=== PATIENT | male | born 1970 | race Caucasian/White ===

== ENCOUNTER 2018-02-27 18:36 | Inpatient (IN) ==
[2018-02-27 19:13] LABS: Basophils % 0.2 % (0.1-2.0); Eosinophils # 0.1 K/mm3 (0.0-0.4); Eosinophils % 0.4 % (0.1-12.0); Hematocrit 44.6 % (42.0-52.0); Hemoglobin 15.2 g/dL (14.1-18.0); Lymphocytes # 1.9 K/mm3 (0.7-4.5); Lymphocytes % 9.8 K/mm3 (10-50); Mean Corpuscular Hemoglobin 30.3 pg (27.0-31.2); Mean Corpuscular Volume 89.1 fl (80-94); Mean Platelet Volume 8.3 fl (7.4-10.4); Monocytes # 1.1 K/mm3 (0.1-1.0); Monocytes % 5.6 % (1.7-9.3); Neutrophils # 16.4 K/mm3 (1.8-7.8); Neutrophils % 83.9 % (37.0-80.0); Platelet Count 220 K/mm3 (142-424); Red Blood Count 5.01 M/mm3 (4.60-6.20); Red Cell Distribution Width 12.6 % (11.5-17.5); White Blood Count 19.5 K/mm3 (4.8-10.8)
[2018-02-27 19:21] LABS: Lymphocytes % 8 % (10-50); Monocytes % 3 % (2-9); Neutrophils % 80 % (42-76); RBC Morphology Normal; Total Cells Counted 100
[2018-02-27 19:23] LABS: Albumin Level 3.9 gm/dL (3.4-5.0); Albumin/Globulin Ratio 1.1 (1.1-1.8); Bilirubin,Total 0.6 mg/dL (0.2-1.0); C-Reactive Protein 10.5 mg/L (0.0-0.9); Calcium 8.5 mg/dL (8.5-10.1); Globulin 3.5 gm/dl (1.3-3.2); Total Protein,Serum 7.4 gm/dL (6.4-8.2)
--- NOTE | 2018-02-27 21:35 | Emergency Department Note ---
ED Disposition Clinical Impression: Cellulitis of left elbow Disposition: Admitted as Observation Condition on Discharge: Fair (Discussed case with his admitting PCP (Dr. Duncan). SBAR given. Patient admitted to his care for farther management and monitoring. Patient remained stable during his ED care. Discussed case with Orthopedic surgeon [place] aide (Dr. Garcia). Agree with current management. Will see patient in AM.) - Critical Care Critical Care Time: No Attestation: On 02/27/18, the high probability of a clinically significant, sudden or life threatening deterioration of the following system(s) required my full and direct attention, intervention and personal management. The time I documented below is in addition to time spent performing reported procedures but includes the following listed in this critical care notation. Medical Decision Making - Balta Inquiry Pt receiving controlled substance: No Vital Signs: 02/27/18 18:40 02/27/18 20:45 02/27/18 21:15 Temperature 100.2 F H Temperature Source Oral Pulse Rate [Left Radial] 104 H 90 95 H Respiratory Rate 20 18 18 Blood Pressure [Right Arm] 154/87 134/70 129/67 Blood Pressure Mean [Right Arm] 109 91 87 Blood Pressure Source [Right Arm] Automatic Cuff Automatic Cuff Automatic Cuff Blood Pressure Position [Right Arm] Sitting Sitting 02 Sat by Pulse Oximetry 98 96 97 Oxygen Delivery Method Room Air Room Air - Lab Data Lab Results 02/27/18 18:47: WBC 19.5 H, RBC 5.01, Hgb 15.2, Hct 44.6, MCV 89.1, MCH 30.3, MCHC 34.0, RDW 12.6, Plt Count 220, MPV 8.3, Neut % (Auto) 83.9 H, Lymph % (Auto) 9.8 L, [place] % (Auto) 5.6, Eos % (Auto) 0.4, Baso % (Auto) 0.2, Neut # (Auto) 16.4 H, Lymph # (Auto) 1.9, [place] # (Auto) 1.1 H, Eos # (Auto) 0.1, Baso # (Auto) 0.0, Total Counted 100, Neutrophils % (Manual) 80 H, Band Neutrophils % 9.0 H, Lymphocytes % (Manual) 8 L, Monocytes % (Manual) 3, Platelet Estimate Normal, RBC Morphology Normal 02/27/18 18:47: Sodium 140, Potassium 4.0, Chloride 103, Carbon Dioxide 26, Anion Gap 15.0, BUN 11, Creatinine 0.99, Estimated Creat Clear 136, Estimated GFR 81, Est GFR ( Amer) 98, Glucose 105, Calcium 8.5, Total Bilirubin 0.6, AST 9 L, ALT 43, Alkaline Phosphatase 88, C-Reactive Protein 10.5 H, Total Protein 7.4, Albumin 3.9, Globulin 3.5 H, Albumin/Globulin Ratio 1.1 02/27/18 18:47: Lactate 1.0 02/27/18 18:47: ESR 10 Result diagrams: 02/27/18 18:47 02/27/18 18:47 Orders (Tests/Meds): ED MEDICATIONS Generic Name Dose Route Start Last Admin Trade Name Freq PRN Reason Stop Dose Admin Sodium Chloride 1,000 mls @ 125 mls/hr 02/27/18 21:30 Sod Chlor 0.9% 1000ml Bag IV 03/29/18 21:29 .Q8H TRENA Miscellaneous 1 each 02/27/18 21:30 Vancomycin Consult Request * 03/29/18 21:29 CONSULT PHARMACY TRENA Discontinued Medications Generic Name Dose Route Start Last Admin Trade Name Freq PRN Reason Stop Dose Admin Acetaminophen 650 mg 02/27/18 18:48 02/27/18 18:52 Acetaminophen 325mg Tab PO 02/27/18 18:49 650 mg ONCE ONE Administration Vancomycin HCl 2,000 mg/ 250 mls @ 125 mls/hr 02/27/18 19:18 02/27/18 19:38 Sodium Chloride IV 02/27/18 21:17 125 mls/hr ONCE ONE Administration Ketorolac Tromethamine 30 mg 02/27/18 19:27 02/27/18 19:38 Toradol 30mg/Ml Vial IV 02/27/18 19:28 30 mg ONCE ONE Administration ORDERS Category Date Time Status Blood Culture Stat Micro 02/27/18 18:47 Received Skin/Abscess/FB HPI - General Chief complaint: Extremity Injury, Upper Stated complaint: Fever, swollen arm Time Seen by Provider: 02/27/18 18:40 Mode of Arrival: Ambulatory Source of Information: Patient Limitations: No Limitations Description of Symptoms (Recalled from ER Triage Doc. 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 Denies any injury but does recall a spider bite about a week ago that his popped the "pimple". - History of Present Illness HPI narrative: Comes to the ED with complain of left elbow pain and swelling since yesterday. Patient reports subjective fever. Denies any recent injury or trauma. Denies any other associated complains at this time. Onset (ago): day(s) (1) Location: LUE (Left elbow) Severity: moderate Severity scale (1-10): 4 Quality: aching, constant Consistency: constant Relieving factors: none Exacerbating factors: none Context: none Associated symptoms: fever - Related Data Home Medications Medication Instructions Recorded Confirmed No Known Home Medications 02/27/18 02/27/18 Allergies Allergy/AdvReac Type Severity Reaction Status Date / Time naproxen [From Aleve] Allergy Dizziness Verified 02/27/18 18:45 [facility] History Medical History: Denies:: Diabetes Mellitus Type 1, Diabetes Mellitus Type 2 - Social History Smoking Status: Current every day smoker Alcohol Intake: current Alcohol Intake Frequency:: holidays/special occasions only - Psychiatric History Expresses thoughts of harming self/others: None Suicide Plan Description: No Plan ROS Obtained: Yes All systems reviewed & no additional complaints Physical Exam - General General appearance: alert, in no apparent distress - Head Head exam: atraumatic, normocephalic, normal inspection - Eye Eye exam: Present: normal appearance, PERRL, EOMI - ENT ENT exam: Present: normal exam, normal oropharynx, mucous membranes moist, TM's normal bilaterally, normal external ear exam - Neck Neck exam: Present: normal inspection, full ROM, trachea midline. Absent: meningismus, lymphadenopathy - Chest Chest inspection: Present: normal inspection, symmetric chest wall rise. Absen t: tenderness - Respiratory Respiratory exam: Present: normal lung sounds bilaterally. Absent: respiratory distress - Cardiovascular Cardiovascular exam: Present: regular rate, normal rhythm. Absent: JVD - Abdominal Exam Abdominal exam: Present: soft, normal bowel sounds. Absent: distention, tenderness, guarding - Extremities Exam Extremities exam: Present: normal inspection, full ROM, normal capillary refill, other (Warmth, erythema and mild swelling over let elbow.). Absent: calf tenderness - Back Exam Back exam: Present: normal inspection. Absent: tenderness - Neurological Exam Neurological exam: Present: alert, oriented X3 - Psychiatric Psychiatric exam: Present: normal affect, normal mood - Skin Skin exam: Present: warm, dry, intact, normal color - Lymphatic Lymphatic Findings: no adenopathy
--- NOTE | 2018-02-28 08:59 | Pharmacy Consult Notes ---
[facility] Pharmacy VTE Monitoring - Patient Demographics Admission date: 02/28/18 Report Date: 02/28/18 Time: 08:59 Allergies/Adverse Reactions: Patient Allergies naproxen [From Aleve] Allergy (Verified 02/27/18 18:45) Dizziness Height: 1.8 m Weight: 109.401 kg Patient Problems: Current Active Problems Cellulitis of left elbow (Acute) - VTE Risk Labs: VTE Related Lab Results Hgb 15.2 g/dL (14.1-18.0) 02/27/18 18:47 Hct 44.6 % (42.0-52.0) 02/27/18 18:47 Plt Count 220 K/mm3 (142-424) 02/27/18 18:47 BUN 11 mg/dL (7-18) 02/27/18 18:47 Creatinine 0.99 mg/dL (0.70-1.30) 02/27/18 18:47 Estimated Creat Clear 136 mL/min (0-300) 02/27/18 18:47 Was VTE Risk Assessment Performed: Yes VTE Score: 1 VTE Risk Level: Very Low Risk - Prophylaxis Types of VTE Prophylaxis: TEDS Knee High (NATHAN HOSE ORDERED) Location of Applied Device: Bilateral Lower Extremeties
--- NOTE | 2018-02-28 09:26 | Pharmacy Consult Notes ---
- Pharmacy Consult Date: 02/28/18 Time: 09:25 Referring provider: DR. LIZARRAGA Reason for Consult:: VANCOMYCIN DOSING Allergies and ADEs:: Allergies Allergy/AdvReac Type Severity Reaction Status Date / Time naproxen [From Aleve] Allergy Dizziness Verified 02/27/18 18:45 Home Medications:: Home Medications Medication Instructions Recorded Confirmed Type No Known Home Medications 02/27/18 02/27/18 History Height: 1.8 m Weight: 109.401 kg Laboratory Results:: Laboratory Results - last 24 hr 02/27/18 18:47: WBC 19.5 H, RBC 5.01, Hgb 15.2, Hct 44.6, MCV 89.1, MCH 30.3, MCHC 34.0, RDW 12.6, Plt Count 220, MPV 8.3, Neut % (Auto) 83.9 H, Lymph % (Auto) 9.8 L, [place] % (Auto) 5.6, Eos % (Auto) 0.4, Baso % (Auto) 0.2, Neut # (Auto) 16.4 H, Lymph # (Auto) 1.9, [place] # (Auto) 1.1 H, Eos # (Auto) 0.1, Baso # (Auto) 0.0, Total Counted 100, Neutrophils % (Manual) 80 H, Band Neutrophils % 9.0 H, Lymphocytes % (Manual) 8 L, Monocytes % (Manual) 3, Platelet Estimate Normal, RBC Morphology Normal 02/27/18 18:47: Sodium 140, Potassium 4.0, Chloride 103, Carbon Dioxide 26, Anion Gap 15.0, BUN 11, Creatinine 0.99, Estimated Creat Clear 136, Estimated GFR 81, Est GFR ( Amer) 98, Glucose 105, Calcium 8.5, Total Bilirubin 0.6, AST 9 L, ALT 43, Alkaline Phosphatase 88, C-Reactive Protein 10.5 H, Total Protein 7.4, Albumin 3.9, Globulin 3.5 H, Albumin/Globulin Ratio 1.1 02/27/18 18:47: Lactate 1.0 02/27/18 18:47: ESR 10 Medical History: Denies:: Diabetes Mellitus Type 1, Diabetes Mellitus Type 2 Assessment and Plan - Assessment and plan all Dx Assessment and Plan for all problems:: BASED ON PATIENT'S FACTORS, RECOMMEND CONTINUING WITH VANCOMYCIN 2000 MG Q12H AT THIS TIME. PHARMACY WILL FOLLOW DAILY AND ADJUST APPROPRIATE. MANJIT VANESSA, NATALIAD
--- NOTE | 2018-02-28 11:12 | History & Physical Report ---
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 He reports the ER physician aspirated his left elbow in the ER yesterday. [facility] History Medical History: Denies:: Diabetes Mellitus Type 1, Diabetes Mellitus Type 2, MRSA Other Surgeries: Yes: Other ([place] teeth removal) - *Social History Educational Level: Attended College Smoking Status: Current every day smoker Tobacco Type: cigarettes # Packs/Day (cigarettes): 1 #Yrs smoked (if former smoker): 10 Alcohol Intake: never Alcohol Intake Frequency:: holidays/special occasions only Occupational Status: employed Housing: house Household Members: spouse - Psychiatric History Expresses thoughts of harming self/others: None Suicide Plan Description: No Plan *Family Hx:: Diabetes Review of Systems - Constitutional Reports chills, Reports fever(s), Denies headache(s) - Eyes Denies blurry vision - ENT Denies change in voice - *Cardiovascular Denies chest pain - *Respiratory Denies cough - *Gastrointestinal Denies abdominal pain - *Genitourinary Denies difficulty urinating - *Neurologic Denies dizziness - Psychiatric Denies anxiety, Denies depression - Endocrine Denies cold intolerance, Denies heat intolerance - Hematologic/Lymphatic Denies easy bleeding, Denies easy bruising Meds Home Medications Medication Instructions Recorded Confirmed Type No Known Home Medications 02/27/18 02/27/18 History Allergies Allergy/AdvReac Type Severity Reaction Status Date / Time naproxen [From Aleve] Allergy Dizziness Verified 02/27/18 18:45 Exam Vital signs and Labs for Last 24 Hours: Temp Pulse Resp BP Pulse Ox 98.6 F 86 20 120/62 95 02/28/18 07:57 02/28/18 07:57 02/28/18 07:57 02/28/18 07:57 02/28/18 07:57 Laboratory Results - last 24 hr 02/27/18 18:47: WBC 19.5 H, RBC 5.01, Hgb 15.2, Hct 44.6, MCV 89.1, MCH 30.3, MCHC 34.0, RDW 12.6, Plt Count 220, MPV 8.3, Neut % (Auto) 83.9 H, Lymph % (Auto) 9.8 L, [place] % (Auto) 5.6, Eos % (Auto) 0.4, Baso % (Auto) 0.2, Neut # (Auto) 16.4 H, Lymph # (Auto) 1.9, [place] # (Auto) 1.1 H, Eos # (Auto) 0.1, Baso # (Auto) 0.0, Total Counted 100, Neutrophils % (Manual) 80 H, Band Neutrophils % 9.0 H, Lymphocytes % (Manual) 8 L, Monocytes % (Manual) 3, Platelet Estimate Normal, RBC Morphology Normal 02/27/18 18:47: Sodium 140, Potassium 4.0, Chloride 103, Carbon Dioxide 26, Anion Gap 15.0, BUN 11, Creatinine 0.99, Estimated Creat Clear 136, Estimated GFR 81, Est GFR ( Amer) 98, Glucose 105, Calcium 8.5, Total Bilirubin 0.6, AST 9 L, ALT 43, Alkaline Phosphatase 88, C-Reactive Protein 10.5 H, Total Protein 7.4, Albumin 3.9, Globulin 3.5 H, Albumin/Globulin Ratio 1.1 02/27/18 18:47: Lactate 1.0 02/27/18 18:47: ESR 10 I & O for Last 24 hours: Intake & Output 02/25/18 02/26/18 02/27/18 02/28/18 11:59 11:59 11:59 11:59 Intake Total 1106 / 1106 Balance 1106 / 1106 Weight 241 lb 3 oz - Constitutional no acute distress - *Routine HEENT Exam Head: Present: normocephalic Eye: Present: EOMI, PERRL ENT: Present: mucous membranes moist - *Routine Neck Exam Present: supple. Absent: lymphadenopathy - *Routine Respiratory Exam Present: CTA bilaterally - *Routine Cardiovascular Exam Present: RRR - *Routine Abdominal Exam Present: soft, normoactive bowel sounds. Absent: tenderness - *Routine Extremities Exam Present: edema (around the left elbow). Absent: cyanosis, clubbing - *Routine Skin Exam Present: erythema (around the left elbow, centered over the olecranon, some induration, no fluctuance), warm - *Routine Neurological Exam Present: alert, oriented X3 Assessment and Plan (1) Cellulitis of left elbow Current visit: Yes Status: Acute Category: Medical Code(s): L03.114 - Cellulitis of left upper limb (2) Leukocytosis Current visit: Yes Status: Acute Category: Medical Code(s): D72.829 - Elevated white blood cell count, unspecified (3) Fever and chills Current visit: Yes Status: Acute Category: Medical Code(s): R50.9 - Fever, unspecified - Assessment and plan all Dx Assessment and Plan for all problems:: Patient admitted for further evaluation and treatment of his left elbow symptoms. It is unclear if the aspiration yesterday was intraarticular or not. Patient has been placed on IV Vancomycin and Orthopedics was consulted by the ER physician.
--- NOTE | 2018-02-28 15:14 | Consult Report ---
*Admission Date: 02/28/18 *Chief complaint: Left elbow pain *History of present illness: This is a very pleasant right-hand dominant 48-year-old male with 2 day history of left elbow pain and swelling. 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 He denies any injuries, abrasions, or any inciting event that he can remember. He denies any numbness tingling or paresthesias of the left upper extremity. He denies any past injuries to this elbow. He relates that he noticed some increasing swelling and reported through the emergency room last night. Blood and inflammatory markers were elevated, pointing to an infectious process. He was started on IV antibiotics after an elbow aspiration was unsuccessful. He did complain of some mild fevers and chills last night, and was noted to have an elevated temperature. He has been on the antibiotics since last evening. Does relate that he feels somewhat better today in terms of fever and chills. Review of Systems - Review of Systems Otherwise 12 point review of systems is negative except for the above mentioned history of present illness - *Neurologic Denies dizziness, Denies headache(s) [facility] History I have reviewed the patient's past medical history: Yes Medical History: Denies:: Diabetes Mellitus Type 1, Diabetes Mellitus Type 2, MRSA Other Surgeries: Yes: Other ([place] teeth removal) - *Social History Educational Level: Attended College Smoking Status: Current every day smoker Tobacco Type: cigarettes # Packs/Day (cigarettes): 1 #Yrs smoked (if former smoker): 10 Alcohol Intake: never Alcohol Intake Frequency:: holidays/special occasions only Occupational Status: employed Housing: house Household Members: spouse - Psychiatric History Expresses thoughts of harming self/others: None Suicide Plan Description: No Plan *Family Hx:: Diabetes Meds Home Medications Medication Instructions Recorded Confirmed Type No Known Home Medications 02/27/18 02/27/18 History Allergies Allergy/AdvReac Type Severity Reaction Status Date / Time naproxen [From Aleve] Allergy Dizziness Verified 02/27/18 18:45 Exam Vital signs and Labs for Last 24 Hours: Temp Pulse Resp BP Pulse Ox 100.9 F H 86 20 120/62 95 02/28/18 13:32 02/28/18 07:57 02/28/18 07:57 02/28/18 07:57 02/28/18 07:57 Laboratory Results - last 24 hr 02/27/18 18:47: WBC 19.5 H, RBC 5.01, Hgb 15.2, Hct 44.6, MCV 89.1, MCH 30.3, MCHC 34.0, RDW 12.6, Plt Count 220, MPV 8.3, Neut % (Auto) 83.9 H, Lymph % (Auto) 9.8 L, [place] % (Auto) 5.6, Eos % (Auto) 0.4, Baso % (Auto) 0.2, Neut # (Auto) 16.4 H, Lymph # (Auto) 1.9, [place] # (Auto) 1.1 H, Eos # (Auto) 0.1, Baso # (Auto) 0.0, Total Counted 100, Neutrophils % (Manual) 80 H, Band Neutrophils % 9.0 H, Lymphocytes % (Manual) 8 L, Monocytes % (Manual) 3, Platelet Estimate Normal, RBC Morphology Normal 02/27/18 18:47: Sodium 140, Potassium 4.0, Chloride 103, Carbon Dioxide 26, Anion Gap 15.0, BUN 11, Creatinine 0.99, Estimated Creat Clear 136, Estimated GFR 81, Est GFR ( Amer) 98, Glucose 105, Calcium 8.5, Total Bilirubin 0.6, AST 9 L, ALT 43, Alkaline Phosphatase 88, C-Reactive Protein 10.5 H, Total Protein 7.4, Albumin 3.9, Globulin 3.5 H, Albumin/Globulin Ratio 1.1 02/27/18 18:47: Lactate 1.0 02/27/18 18:47: ESR 10 I & O for Last 24 hours: Intake & Output 02/25/18 02/26/18 02/27/18 02/28/18 23:59 23:59 23:59 23:59 Intake Total 1106 / 1106 Balance 1106 / 1106 Weight 241 lb 3 oz 241 lb 3 oz - Constitutional no acute distress - Detailed Upper Extremity Exam Comments: Left upper extremity/elbow: There is a moderate amount of erythema and diffuse swelling consistent with ce llulitis. No abscess or fluctuance can be appreciated on palpation Neurovascular intact distally Sensation intact to light touch throughout Compartments are soft and compressible Motor strength intact of the AIN/PIN/R/U/M Distal pulses are 2 out of 4 Full terminal extension of the elbow and flexion to 120 with no real discomfort. The flexion is limited by the moderate swelling Results - Labs Result Diagrams: 02/27/18 18:47 02/27/18 18:47 Labs: Abnormal lab results 02/27/18 02/27/18 Range/Units 18:47 18:47 WBC 19.5 H (4.8-10.8) K/mm3 Neut % (Auto) 83.9 H (37.0-80.0) % Lymph % (Auto) 9.8 L (10-50) K/mm3 Neut # (Auto) 16.4 H (1.8-7.8) K/mm3 [place] # (Auto) 1.1 H (0.1-1.0) K/mm3 Neutrophils % (Manual) 80 H (42-76) % Band Neutrophils % 9.0 H (0-8) Lymphocytes % (Manual) 8 L (10-50) % AST 9 L (15-37) U/L C-Reactive Protein 10.5 H (0.0-0.9) mg/L Globulin 3.5 H (1.3-3.2) gm/dl H & H 02/27/18 Range/Units 18:47 Hgb 15.2 (14.1-18.0) g/dL Hct 44.6 (42.0-52.0) % All other labs normal. Assessment and Plan (1) Cellulitis of left elbow Current visit: Yes Status: Acute Category: Medical Code(s): L03.114 - Cellulitis of left upper limb Assessment: Cellulitis left elbow Plan: Patient's clinical exam findings and diagnosis were discussed with him and his at today's visit. This appears to be cellulitic in nature, and no appreciable abscesses or fluctuance can be noted on exam. He is able to flex and extend his elbow without too much discomfort. I feel that if the infection was in the joint, he would have significant discomfort with range of motion. From an orthopedic standpoint, the plan will be to continue the IV antibiotics. He can eat, but we will make him n.p.o. at midnight again. If he is not improved or is getting worse tomorrow, I think an MRI is warranted. Otherwise, we will continue with conservative treatment with IV antibiotics per the primary team. Additionally, I will plan on ordering an x-ray of the left elbow. This plan was discussed with the patient and his , who verbalized agreement with the plan, and all questions were answered at today's consultation. Saúl Garcia DO, MPH Orthopedic Surgery (2) Leukocytosis Current visit: Yes Status: Acute Category: Medical Code(s): D72.829 - Elevated white blood cell count, unspecified (3) Fever and chills Current visit: Yes Status: Acute Category: Medical Code(s): R50.9 - Fever, unspecified
[2018-03-01 06:32] LABS: Basophils % 0.3 % (0.1-2.0); Eosinophils # 0.2 K/mm3 (0.0-0.4); Eosinophils % 1.4 % (0.1-12.0); Hematocrit 39.1 % (42.0-52.0); Hemoglobin 13.1 g/dL (14.1-18.0); Lymphocytes # 1.7 K/mm3 (0.7-4.5); Mean Corpuscular HGB Conc 33.5 g/dL (31.8-35.4); Mean Corpuscular Hemoglobin 30.3 pg (27.0-31.2); Mean Corpuscular Volume 90.5 fl (80-94); Mean Platelet Volume 8.1 fl (7.4-10.4); Monocytes # 1.2 K/mm3 (0.1-1.0); Monocytes % 7.1 % (1.7-9.3); Neutrophils # 13.4 K/mm3 (1.8-7.8); Neutrophils % 81.2 % (37.0-80.0); Platelet Count 207 K/mm3 (142-424); Red Blood Count 4.32 M/mm3 (4.60-6.20); Red Cell Distribution Width 12.6 % (11.5-17.5); White Blood Count 16.6 K/mm3 (4.8-10.8)
[2018-03-01 06:41] LABS: Calcium 8.2 mg/dL (8.5-10.1)
--- NOTE | 2018-03-01 08:20 | Progress Note ---
<Fany Leavitt - Last Filed: 03/01/18 08:24> Internal Medicine - PN: Subj *Date: 03/01/18 *Time: 07:45 Interval history: Patient states his arm is better. The swelling has decreased and has less redness. He has had a low-grade fever. He states his body aches all over. He is eating without difficulty. He is voiding QS and bowels have moved. He has been ambulating without difficulty Exam Vital signs and Labs for Last 24 Hours: Temp Pulse Resp BP Pulse Ox 99.3 F 82 18 152/71 92 L 03/01/18 07:43 03/01/18 07:43 03/01/18 07:43 03/01/18 04:00 03/01/18 07:43 Laboratory Results - last 24 hr 03/01/18 06:04: WBC 16.6 H, RBC 4.32 L, Hgb 13.1 L, Hct 39.1 L, MCV 90.5, MCH 30.3, MCHC 33.5, RDW 12.6, Plt Count 207, MPV 8.1, Neut % (Auto) 81.2 H, Lymph % (Auto) 10.0, [place] % (Auto) 7.1, Eos % (Auto) 1.4, Baso % (Auto) 0.3, Neut # (Auto) 13.4 H, Lymph # (Auto) 1.7, [place] # (Auto) 1.2 H, Eos # (Auto) 0.2, Baso # (Auto) 0.0 03/01/18 06:04: Sodium 141, Potassium 4.0, Chloride 109 H, Carbon Dioxide 25, Anion Gap 11.0, BUN 9, Creatinine 0.91, Estimated Creat Clear 155, Estimated GFR 89, Est GFR ( Amer) 108, Glucose 128 H, Calcium 8.2 L I & O for Last 24 hours: Intake & Output 02/26/18 02/27/18 02/28/18 03/01/18 11:59 11:59 11:59 11:59 Intake Total 1106 / 1106 2906 / 2906 Balance 1106 / 1106 2906 / 2906 Weight 241 lb 3 oz - Constitutional no acute distress Comments: Awakened for exam - *Routine Respiratory Exam Present: CTA bilaterally (Anteriorly and posteriorly) - *Routine Cardiovascular Exam Present: RRR - *Routine Abdominal Exam Present: soft, normoactive bowel sounds. Absent: tenderness - *Routine Extremities Exam Present: edema. Absent: calf tenderness Comments: Edema and erythema of the left forearm have decreased. He has a pouch fluid at the elbow. - *Routine Skin Exam Present: erythema Comments: Erythema and edema of left forearm have decreased. Pouch of fluid at the elbow. Nontender. - *Routine Neurological Exam Present: alert, oriented X3 Assessment and Plan (1) Cellulitis of left elbow Current visit: Yes Status: Acute Category: Medical Code(s): L03.114 - Cellulitis of left upper limb (2) Leukocytosis Current visit: Yes Status: Acute Category: Medical Code(s): D72.829 - Elevated white blood cell count, unspecified (3) Fever and chills Current visit: Yes Status: Acute Category: Medical Code(s): R50.9 - Fever, unspecified - Assessment and plan all Dx Assessment and Plan for all problems:: Continue with current treatment. Orthopedic note reviewed. <Kike Jimenez - Last Filed: 03/01/18 09:00> Exam Vital signs and Labs for Last 24 Hours: Temp Pulse Resp BP Pulse Ox 99.3 F 82 18 125/74 92 L 03/01/18 07:43 03/01/18 07:43 03/01/18 07:43 03/01/18 07:43 03/01/18 07:43 Laboratory Results - last 24 hr 03/01/18 06:04: WBC 16.6 H, RBC 4.32 L, Hgb 13.1 L, Hct 39.1 L, MCV 90.5, MCH 30.3, MCHC 33.5, RDW 12.6, Plt Count 207, MPV 8.1, Neut % (Auto) 81.2 H, Lymph % (Auto) 10.0, [place] % (Auto) 7.1, Eos % (Auto) 1.4, Baso % (Auto) 0.3, Neut # (Auto) 13.4 H, Lymph # (Auto) 1.7, [place] # (Auto) 1.2 H, Eos # (Auto) 0.2, Baso # (Auto) 0.0 03/01/18 06:04: Sodium 141, Potassium 4.0, Chloride 109 H, Carbon Dioxide 25, Anion Gap 11.0, BUN 9, Creatinine 0.91, Estimated Creat Clear 155, Estimated GFR 89, Est GFR ( Amer) 108, Glucose 128 H, Calcium 8.2 L I & O for Last 24 hours: Intake & Output 02/26/18 02/27/18 02/28/18 03/01/18 11:59 11:59 11:59 11:59 Intake Total 1106 / 1106 2906 / 2906 Balance 1106 / 1106 2906 / 2906 Weight 241 lb 3 oz Assessment and Plan (1) Cellulitis of left elbow Current visit: Yes Status: Acute Category: Medical Code(s): L03.114 - Cellulitis of left upper limb (2) Leukocytosis Current visit: Yes Status: Acute Category: Medical Code(s): D72.829 - Elevated white blood cell count, unspecified (3) Fever and chills Current visit: Yes Status: Acute Category: Medical Code(s): R50.9 - Fever, unspecified - Assessment and plan all Dx Assessment and Plan for all problems:: Saw patient, agree with above note.
--- NOTE | 2018-03-01 09:29 | Pharmacy Consult Notes ---
- Pharmacy Consult Date: 03/01/18 Time: 09:23 Referring provider: DR. LIZARRAGA Reason for Consult:: VANCOMYCIN LEVEL AND DOSE CHANGE Allergies and ADEs:: Allergies Allergy/AdvReac Type Severity Reaction Status Date / Time naproxen [From Aleve] Allergy Dizziness Verified 02/27/18 18:45 Home Medications:: Home Medications Medication Instructions Recorded Confirmed Type No Known Home Medications 02/27/18 02/27/18 History Height: 1.8 m Weight: 109.401 kg Laboratory Results:: Laboratory Results - last 24 hr 03/01/18 06:04: WBC 16.6 H, RBC 4.32 L, Hgb 13.1 L, Hct 39.1 L, MCV 90.5, MCH 30.3, MCHC 33.5, RDW 12.6, Plt Count 207, MPV 8.1, Neut % (Auto) 81.2 H, Lymph % (Auto) 10.0, [place] % (Auto) 7.1, Eos % (Auto) 1.4, Baso % (Auto) 0.3, Neut # (Auto) 13.4 H, Lymph # (Auto) 1.7, [place] # (Auto) 1.2 H, Eos # (Auto) 0.2, Baso # (Auto) 0.0 03/01/18 06:04: Sodium 141, Potassium 4.0, Chloride 109 H, Carbon Dioxide 25, Anion Gap 11.0, BUN 9, Creatinine 0.91, Estimated Creat Clear 155, Estimated GFR 89, Est GFR ( Amer) 108, Glucose 128 H, Calcium 8.2 L 03/01/18 08:38: Vancomycin Trough 6.2 L Medical History: Denies:: Diabetes Mellitus Type 1, Diabetes Mellitus Type 2, MRSA Assessment and Plan (1) Cellulitis of left elbow Current visit: Yes Status: Acute Category: Medical Code(s): L03.114 - Cellulitis of left upper limb (2) Leukocytosis Current visit: Yes Status: Acute Category: Medical Code(s): D72.829 - Elevated white blood cell count, unspecified (3) Fever and chills Current visit: Yes Status: Acute Category: Medical Code(s): R50.9 - Fever, unspecified - Assessment and plan all Dx Assessment and Plan for all problems:: BASED ON PATIENT'S VANCOMYCIN TROUGH LEVEL OF 6.2 MCG/ML, RECOMMEND CHANGING DOSING INTERVAL TO Q8H WITH VANCOMYCIN 2000 MG. PHARMACY WILL FOLLOW DAILY AND ADJUST APPROPRIATE. MANJIT VANESSA, PHARMD
[2018-03-01 09:40] LABS: Lymphocytes % 7 % (10-50); Monocytes % 11 % (2-9); Neutrophils % 80 % (42-76); RBC Morphology Normal; Total Cells Counted 100
--- NOTE | 2018-03-01 17:20 | Progress Note ---
Internal Medicine - PN: Subj *Date: 03/01/18 *Time: 17:16 Interval history: Patient is still awaiting orthopedist to round today. He has been NPO since midnight last night. Patient feels like his edema and redness of his left arm is slightly worse. He has had some subjective chills today. Exam Vital signs and Labs for Last 24 Hours: Temp Pulse Resp BP Pulse Ox 98.4 F 91 H 18 152/74 95 03/01/18 15:35 03/01/18 15:35 03/01/18 15:35 03/01/18 15:35 03/01/18 15:35 Laboratory Results - last 24 hr 03/01/18 06:04: WBC 16.6 H, RBC 4.32 L, Hgb 13.1 L, Hct 39.1 L, MCV 90.5, MCH 30.3, MCHC 33.5, RDW 12.6, Plt Count 207, MPV 8.1, Neut % (Auto) 81.2 H, Lymph % (Auto) 10.0, [place] % (Auto) 7.1, Eos % (Auto) 1.4, Baso % (Auto) 0.3, Neut # (Auto) 13.4 H, Lymph # (Auto) 1.7, [place] # (Auto) 1.2 H, Eos # (Auto) 0.2, Baso # (Auto) 0.0, Total Counted 100, Neutrophils % (Manual) 80 H, Lymphocytes % (Manual) 7 L, Atypical Lymphs % 2.0, Monocytes % (Manual) 11 H, Platelet Estimate Normal, RBC Morphology Normal 03/01/18 06:04: Sodium 141, Potassium 4.0, Chloride 109 H, Carbon Dioxide 25, Anion Gap 11.0, BUN 9, Creatinine 0.91, Estimated Creat Clear 155, Estimated GFR 89, Est GFR ( Amer) 108, Glucose 128 H, Calcium 8.2 L 03/01/18 08:38: Vancomycin Trough 6.2 L I & O for Last 24 hours: Intake & Output 02/27/18 02/28/18 03/01/18 03/02/18 11:59 11:59 11:59 11:59 Intake Total 1106 / 1106 2906 / 2906 Balance 1106 / 1106 2906 / 2906 Weight 241 lb 3 oz 241 lb 3 oz - *Routine Extremities Exam Present: edema (in left upper extremity is slightly worse) - *Routine Skin Exam Present: erythema (has extended out slightly past the marked area from yesterday) Assessment and Plan (1) Cellulitis of left elbow Current visit: Yes Status: Acute Category: Medical Code(s): L03.114 - Cellulitis of left upper limb (2) Leukocytosis Current visit: Yes Status: Acute Category: Medical Code(s): D72.829 - Elevated white blood cell count, unspecified (3) Fever and chills Current visit: Yes Status: Acute Category: Medical Code(s): R50.9 - Fever, unspecified - Assessment and plan all Dx Assessment and Plan for all problems:: Patient has not improved, will add Zosyn to Vancomycin now.
--- NOTE | 2018-03-01 18:46 | Progress Note ---
Subjective Date: 03/01/18 Time: 17:30 Principal diagnosis: Olecranon bursitis, left elbow; cellulitis, left elbow PN: Obj Ex Vital signs: Temp Pulse Resp BP Pulse Ox 99.0 F 91 H 18 152/74 95 03/01/18 17:30 03/01/18 15:35 03/01/18 15:35 03/01/18 15:35 03/01/18 15:35 Narrative: Laboratory Results - last 24 hr 03/01/18 06:04: WBC 16.6 H, RBC 4.32 L, Hgb 13.1 L, Hct 39.1 L, MCV 90.5, MCH 30.3, MCHC 33.5, RDW 12.6, Plt Count 207, MPV 8.1, Neut % (Auto) 81.2 H, Lymph % (Auto) 10.0, [place] % (Auto) 7.1, Eos % (Auto) 1.4, Baso % (Auto) 0.3, Neut # (Auto) 13.4 H, Lymph # (Auto) 1.7, [place] # (Auto) 1.2 H, Eos # (Auto) 0.2, Baso # (Auto) 0.0, Total Counted 100, Neutrophils % (Manual) 80 H, Lymphocytes % (Manual) 7 L, Atypical Lymphs % 2.0, Monocytes % (Manual) 11 H, Platelet Estimate Normal, RBC Morphology Normal 03/01/18 06:04: Sodium 141, Potassium 4.0, Chloride 109 H, Carbon Dioxide 25, Anion Gap 11.0, BUN 9, Creatinine 0.91, Estimated Creat Clear 155, Estimated GFR 89, Est GFR ( Amer) 108, Glucose 128 H, Calcium 8.2 L 03/01/18 08:38: Vancomycin Trough 6.2 L Progress Note: A&P (1) Cellulitis of left elbow Status: Acute Current Visit: Yes (2) Leukocytosis Status: Acute Current Visit: Yes (3) Fever and chills Status: Acute Current Visit: Yes (4) Olecranon bursitis of left elbow Status: Acute Current Visit: Yes Assessment and Plan for All Diagnoses:: I reviewed the clinical and x-ray findings and progress with the patient and his . Patient says he has made slight improvement symptomatically compared to yesterday. Also his white cell count has come down since admission but is still elevated. He is tender over the olecranon with soft tissue swelling and surrounding cellulitis. Nontender over the elbow joint anteriorly, medially and laterally; nontender over the radial head. He also has fairly good range of elbow flexion and extension with the range of motion 5 to 120. Following the discussion with the patient, I recommended continuation of conservative management including rest, activity modification, icing, continuation of IV antibiotics, NSAIDs and as needed pain medication. Also recommended repeat CBC, ESR and CRP tomorrow. Patient can eat and drink and I would reassess his progress tomorrow. There is no definite abscess formation and has had no surgical intervention is not indicated or required. I have discussed about the patient with Dr. Jimenez. Continue medical management as per Dr. Jimenez.
[2018-03-02 06:40] LABS: Basophils # 0.1 K/mm3 (0-0.2); Basophils % 0.4 % (0.1-2.0); Eosinophils # 0.3 K/mm3 (0.0-0.4); Eosinophils % 2.6 % (0.1-12.0); Hematocrit 40.8 % (42.0-52.0); Hemoglobin 13.7 g/dL (14.1-18.0); Lymphocytes # 2.2 K/mm3 (0.7-4.5); Lymphocytes % 18.3 K/mm3 (10-50); Mean Corpuscular HGB Conc 33.5 g/dL (31.8-35.4); Mean Corpuscular Hemoglobin 30.3 pg (27.0-31.2); Mean Corpuscular Volume 90.5 fl (80-94); Mean Platelet Volume 8.1 fl (7.4-10.4); Monocytes # 0.7 K/mm3 (0.1-1.0); Neutrophils # 8.8 K/mm3 (1.8-7.8); Neutrophils % 72.7 % (37.0-80.0); Platelet Count 247 K/mm3 (142-424); Red Cell Distribution Width 12.5 % (11.5-17.5); White Blood Count 12.1 K/mm3 (4.8-10.8)
[2018-03-02 06:42] LABS: Anion Gap 11.2 mEq/L (5-15); Calcium 8.4 mg/dL (8.5-10.1); Potassium 4.2 mmoL/L (3.5-5.1)
--- NOTE | 2018-03-02 08:06 | Progress Note ---
<Fany Leavitt - Last Filed: 03/02/18 08:03> Internal Medicine - PN: Subj *Date: 03/02/18 *Time: 07:35 Interval history: Patient is feeling much better. He states his fever broke during the night. He reports less swelling and redness of the left arm. When not n.p.o. he is eating well without problems. He denies chest pain and shortness of breath. He ambulates in the room without difficulty. Patient is anxious to go home. Exam Vital signs and Labs for Last 24 Hours: Temp Pulse Resp BP Pulse Ox 98.3 F 70 18 116/61 98 03/02/18 04:00 03/02/18 04:00 03/02/18 04:00 03/02/18 04:00 03/02/18 04:00 Laboratory Results - last 24 hr 03/01/18 06:04: Total Counted 100, Neutrophils % (Manual) 80 H, Lymphocytes % (Manual) 7 L, Atypical Lymphs % 2.0, Monocytes % (Manual) 11 H, Platelet Estimate Normal, RBC Morphology Normal 03/01/18 08:38: Vancomycin Trough 6.2 L 03/02/18 06:20: C-Reactive Protein 12.8 H 03/02/18 06:20: WBC 12.1 H D, RBC 4.50 L, Hgb 13.7 L, Hct 40.8 L, MCV 90.5, MCH 30.3, MCHC 33.5, RDW 12.5, Plt Count 247, MPV 8.1, Neut % (Auto) 72.7, Lymph % (Auto) 18.3, [place] % (Auto) 6.0, Eos % (Auto) 2.6, Baso % (Auto) 0.4, Neut # (Auto) 8.8 H, Lymph # (Auto) 2.2, [place] # (Auto) 0.7, Eos # (Auto) 0.3, Baso # (Auto) 0.1 03/02/18 06:20: Sodium 141, Potassium 4.2, Chloride 107, Carbon Dioxide 27, Anion Gap 11.2, BUN 9, Creatinine 0.95, Estimated Creat Clear 149, Estimated GFR 85, Est GFR ( Amer) 103, Glucose 118 H, Calcium 8.4 L I & O for Last 24 hours: Intake & Output 02/27/18 02/28/18 03/01/18 03/02/18 11:59 11:59 11:59 11:59 Intake Total 1106 / 1106 2906 / 2906 2947 / 2947 Balance 1106 / 1106 2906 / 2906 2947 / 2947 Weight 241 lb 3 oz 241 lb 3 oz Microbiology Reports for the Last 24 Hours: Microbiology 02/27/18 18:47 Blood Blood Culture - Preliminary NO GROWTH AFTER 48 HOURS 02/27/18 18:47 Blood Blood Culture - Preliminary NO GROWTH AFTER 48 HOURS - Constitutional no acute distress Comments: Sitting up in chair at bedside. Wanting to eat breakfast. - *Routine Respiratory Exam Present: CTA bilaterally (Anteriorly and posteriorly) - *Routine Cardiovascular Exam Present: RRR - *Routine Abdominal Exam Present: soft, normoactive bowel sounds. Absent: tenderness, distended - *Routine Extremities Exam Comments: No leg edema. Left arm with a decreased amount of edema and erythema. Some soft tissue swelling at elbow. Left hand has some edema. Tender to palpation at the elbow - *Routine Neurological Exam Present: alert, oriented X3 Assessment and Plan (1) Cellulitis of left elbow Current visit: Yes Status: Acute Category: Medical Code(s): L03.114 - Cellulitis of left upper limb (2) Leukocytosis Current visit: Yes Status: Acute Category: Medical Code(s): D72.829 - Elevated white blood cell count, unspecified (3) Fever and chills Current visit: Yes Status: Acute Category: Medical Code(s): R50.9 - Fever, unspecified (4) Olecranon bursitis of left elbow Current visit: Yes Status: Acute Category: Medical Code(s): M70.22 - Olecranon bursitis, left elbow - Assessment and plan all Dx Assessment and Plan for all problems:: Blood cultures remain without growth. WBCs have decreased but are still slightly elevated at 12.1. Will continue IV antibiotics for now. Will saline lock IV. <Kike Jimenez - Last Filed: 03/02/18 09:14> Exam Vital signs and Labs for Last 24 Hours: Temp Pulse Resp BP Pulse Ox 97.8 F 75 76 H 131/86 97 03/02/18 08:00 03/02/18 08:00 03/02/18 08:00 03/02/18 08:00 03/02/18 08:00 Laboratory Results - last 24 hr 03/01/18 06:04: Total Counted 100, Neutrophils % (Manual) 80 H, Lymphocytes % (Manual) 7 L, Atypical Lymphs % 2.0, Monocytes % (Manual) 11 H, Platelet Estimate Normal, RBC Morphology Normal 03/01/18 08:38: Vancomycin Trough 6.2 L 03/02/18 06:20: C-Reactive Protein 12.8 H 03/02/18 06:20: WBC 12.1 H D, RBC 4.50 L, Hgb 13.7 L, Hct 40.8 L, MCV 90.5, MCH 30.3, MCHC 33.5, RDW 12.5, Plt Count 247, MPV 8.1, Neut % (Auto) 72.7, Lymph % (Auto) 18.3, [place] % (Auto) 6.0, Eos % (Auto) 2.6, Baso % (Auto) 0.4, Neut # (Auto) 8.8 H, Lymph # (Auto) 2.2, [place] # (Auto) 0.7, Eos # (Auto) 0.3, Baso # (Auto) 0.1 03/02/18 06:20: Sodium 141, Potassium 4.2, Chloride 107, Carbon Dioxide 27, Anion Gap 11.2, BUN 9, Creatinine 0.95, Estimated Creat Clear 149, Estimated GFR 85, Est GFR ( Amer) 103, Glucose 118 H, Calcium 8.4 L I & O for Last 24 hours: Intake & Output 02/27/18 02/28/18 03/01/18 03/02/18 11:59 11:59 11:59 11:59 Intake Total 1106 / 1106 2906 / 2906 2947 / 2947 Balance 1106 / 1106 2906 / 2906 2947 / 2947 Weight 241 lb 3 oz 241 lb 3 oz Microbiology Reports for the Last 24 Hours: Microbiology 02/27/18 18:47 Blood Blood Culture - Preliminary NO GROWTH AFTER 48 HOURS 02/27/18 18:47 Blood Blood Culture - Preliminary NO GROWTH AFTER 48 HOURS Assessment and Plan (1) Cellulitis of left elbow Current visit: Yes Status: Acute Category: Medical Code(s): L03.114 - Cellulitis of left upper limb (2) Leukocytosis Current visit: Yes Status: Acute Category: Medical Code(s): D72.829 - Elevated white blood cell count, unspecified (3) Fever and chills Current visit: Yes Status: Acute Category: Medical Code(s): R50.9 - Fever, unspecified (4) Olecranon bursitis of left elbow Current visit: Yes Status: Acute Category: Medical Code(s): M70.22 - Olecranon bursitis, left elbow - Assessment and plan all Dx Assessment and Plan for all problems:: Saw patient, agree with above note. Patient is much better today.
--- NOTE | 2018-03-02 09:37 | Pharmacy Consult Notes ---
- Pharmacy Consult Date: 03/02/18 Time: 09:34 Referring provider: DR. LIZARRAGA Reason for Consult:: VANCOMYCIN TROUGH LEVEL Allergies and ADEs:: Allergies Allergy/AdvReac Type Severity Reaction Status Date / Time naproxen [From Aleve] Allergy Dizziness Verified 02/27/18 18:45 Home Medications:: Home Medications Medication Instructions Recorded Confirmed Type No Known Home Medications 02/27/18 02/27/18 History Height: 1.8 m Weight: 109.401 kg Laboratory Results:: Laboratory Results - last 24 hr 03/01/18 06:04: Total Counted 100, Neutrophils % (Manual) 80 H, Lymphocytes % (Manual) 7 L, Atypical Lymphs % 2.0, Monocytes % (Manual) 11 H, Platelet Estimate Normal, RBC Morphology Normal 03/02/18 06:20: C-Reactive Protein 12.8 H 03/02/18 06:20: WBC 12.1 H D, RBC 4.50 L, Hgb 13.7 L, Hct 40.8 L, MCV 90.5, MCH 30.3, MCHC 33.5, RDW 12.5, Plt Count 247, MPV 8.1, Neut % (Auto) 72.7, Lymph % (Auto) 18.3, [place] % (Auto) 6.0, Eos % (Auto) 2.6, Baso % (Auto) 0.4, Neut # (Auto) 8.8 H, Lymph # (Auto) 2.2, [place] # (Auto) 0.7, Eos # (Auto) 0.3, Baso # (Auto) 0.1 03/02/18 06:20: Sodium 141, Potassium 4.2, Chloride 107, Carbon Dioxide 27, Anion Gap 11.2, BUN 9, Creatinine 0.95, Estimated Creat Clear 149, Estimated GFR 85, Est GFR ( Amer) 103, Glucose 118 H, Calcium 8.4 L 03/02/18 08:25: Vancomycin Trough 15.6 Medical History: Denies:: Diabetes Mellitus Type 1, Diabetes Mellitus Type 2, MRSA Assessment and Plan (1) Cellulitis of left elbow Current visit: Yes Status: Acute Category: Medical Code(s): L03.114 - Cellulitis of left upper limb (2) Leukocytosis Current visit: Yes Status: Acute Category: Medical Code(s): D72.829 - Elevated white blood cell count, unspecified (3) Fever and chills Current visit: Yes Status: Acute Category: Medical Code(s): R50.9 - Fever, unspecified (4) Olecranon bursitis of left elbow Current visit: Yes Status: Acute Category: Medical Code(s): M70.22 - Olecranon bursitis, left elbow - Assessment and plan all Dx Assessment and Plan for all problems:: BASED ON VANCOMYCIN TROUGH LEVEL AND PATIENT FACTORS, RECOMMEND CONTINUING V ANCOMYCIN 2 GM IV Q8H. PATIENT'S FEVER IS GONE AND CELLULITIS IS IMPROVING. PHARMACY WILL CONTINUE TO MONITOR DAILY AND ADJUST APPROPRIATE.
--- NOTE | 2018-03-02 13:24 | Progress Note ---
Subjective Date: 03/02/18 Time: 15:00 Principal diagnosis: Olecranon bursitis, left elbow; cellulitis, left elbow Interval history: Patient says he is doing a lot better today. He reports less pain, swelling and redness around his left elbow. He had low-grade fever last night with a T-max of 99.7. Patient is sitting out in the chair. Says is doing well and reports no problems. No history of any nausea or vomiting. Patient says he is eating and drinking well. No history of any distal tingling or numbness. PN: Obj Ex Vital signs: Temp Pulse Resp BP Pulse Ox 97.8 F 75 18 120/76 97 03/02/18 11:45 03/02/18 11:45 03/02/18 11:45 03/02/18 11:45 03/02/18 11:45 Narrative: Laboratory Results - last 24 hr 03/02/18 06:20: ESR 41 H 03/02/18 06:20: C-Reactive Protein 12.8 H 03/02/18 06:20: WBC 12.1 H D, RBC 4.50 L, Hgb 13.7 L, Hct 40.8 L, MCV 90.5, MCH 30.3, MCHC 33.5, RDW 12.5, Plt Count 247, MPV 8.1, Neut % (Auto) 72.7, Lymph % (Auto) 18.3, [place] % (Auto) 6.0, Eos % (Auto) 2.6, Baso % (Auto) 0.4, Neut # (Auto) 8.8 H, Lymph # (Auto) 2.2, [place] # (Auto) 0.7, Eos # (Auto) 0.3, Baso # (Auto) 0.1 03/02/18 06:20: Sodium 141, Potassium 4.2, Chloride 107, Carbon Dioxide 27, Anion Gap 11.2, BUN 9, Creatinine 0.95, Estimated Creat Clear 149, Estimated GFR 85, Est GFR ( Amer) 103, Glucose 118 H, Calcium 8.4 L 03/02/18 08:25: Vancomycin Trough 15.6 Microbiology 02/27/18 18:47 Blood Blood Culture - Preliminary NO GROWTH AFTER 48 HOURS 02/27/18 18:47 Blood Blood Culture - Preliminary NO GROWTH AFTER 48 HOURS Exam General appearance: alert, active, awake, no acute distress Cardiovascular: regular rate & rhythm, normal peripheral pulses Respiratory: no respiratory distress noted, speaks in full sentences Neuro: alert, awake, oriented x 3 Psych: normal mood and affect On examination of the left upper extremity, the erythema and swelling have significantly improved compared to yesterday. There is still some puffy swelling and tenderness over the olecranon bursa. The skin is starting to wrinkle over the rest of the arm. He has almost full range of elbow and forearm movements. No tenderness over the elbow joint anteriorly and nontender over the radial head. Distal pulses are 2+. Distal sensation is intact to light touch throughout. No motor deficits noted distally. Progress Note: A&P (1) Cellulitis of left elbow Status: Acute Current Visit: Yes (2) Leukocytosis Status: Acute Current Visit: Yes (3) Fever and chills Status: Acute Current Visit: Yes (4) Olecranon bursitis of left elbow Status: Acute Current Visit: Yes Assessment and Plan for All Diagnoses:: I reviewed the clinical findings and progress with the patient his . His elbow/arm have improved significantly since yesterday and is happy with his progress. The olecranon bursa is still significantly inflamed but no definitive evidence of any abscess formation. As he is improving with the current management, the white cell count is trending down and had a negative aspiration on admission, I would recommend continuation of the IV antibiotics. I have told him that if he develops an abscess or the infection does not clear completely with antibiotics he may need surgical intervention but for now we will wait and watch. He is happy with this plan. Medical management as per Dr. Jimenez.
--- NOTE | 2018-03-03 07:58 | Progress Note ---
<Patsy Medina - Last Filed: 03/03/18 07:56> Internal Medicine - PN: Subj *Date: 03/03/18 *Time: 07:56 Interval history: Patient is feeling better this am. Pain and swelling along with erythema have improved. Still some tenderness and swelling right on the olecranon bursa. Pt was able to rest. Eating well. Denies any other pain. Exam Vital signs and Labs for Last 24 Hours: Temp Pulse Resp BP Pulse Ox 98.2 F 73 16 131/88 95 03/03/18 04:00 03/03/18 04:00 03/03/18 04:00 03/03/18 04:00 03/03/18 04:00 Laboratory Results - last 24 hr 03/02/18 06:20: ESR 41 H 03/02/18 08:25: Vancomycin Trough 15.6 I & O for Last 24 hours: Intake & Output 02/28/18 03/01/18 03/02/18 03/03/18 11:59 11:59 11:59 11:59 Intake Total 1106 / 1106 2906 / 2906 2947 / 2947 1060 / 1060 Balance 1106 / 1106 2906 / 2906 2947 / 2947 1060 / 1060 Weight 241 lb 3 oz 241 lb 3 oz 241 lb 3 oz - Constitutional no acute distress - *Routine Respiratory Exam Present: CTA bilaterally - *Routine Cardiovascular Exam Present: RRR - *Routine Abdominal Exam Present: soft, normoactive bowel sounds. Absent: tenderness - *Routine Extremities Exam Absent: cyanosis, clubbing, edema - *Routine Skin Exam Comments: Left elbow still with some erythema, edema, and ttp along the olecranon bursa, the erythema of the forearm and upper arm have improved, better ROM of the elbow Assessment and Plan (1) Cellulitis of left elbow Current visit: Yes Status: Acute Category: Medical Code(s): L03.114 - Cellulitis of left upper limb (2) Leukocytosis Current visit: Yes Status: Acute Category: Medical Code(s): D72.829 - Elevated white blood cell count, unspecified (3) Fever and chills Current visit: Yes Status: Acute Category: Medical Code(s): R50.9 - Fever, unspecified (4) Olecranon bursitis of left elbow Current visit: Yes Status: Acute Category: Medical Code(s): M70.22 - Olecranon bursitis, left elbow - Assessment and plan all Dx Assessment and Plan for all problems:: Dr. Villarreal's note reviewed. Will continue IV abx. WBC is improving. <Kike Jimenez - Last Filed: 03/03/18 08:23> Exam Vital signs and Labs for Last 24 Hours: Temp Pulse Resp BP Pulse Ox 97.9 F 76 18 142/91 95 03/03/18 08:00 03/03/18 08:00 03/03/18 08:00 03/03/18 08:00 03/03/18 08:00 Laboratory Results - last 24 hr 03/02/18 06:20: ESR 41 H 03/02/18 08:25: Vancomycin Trough 15.6 I & O for Last 24 hours: Intake & Output 02/28/18 03/01/18 03/02/18 03/03/18 11:59 11:59 11:59 11:59 Intake Total 1106 / 1106 2906 / 2906 2947 / 2947 1540 / 1540 Balance 1106 / 1106 2906 / 2906 2947 / 2947 1540 / 1540 Weight 241 lb 3 oz 241 lb 3 oz 241 lb 3 oz Assessment and Plan (1) Cellulitis of left elbow Current visit: Yes Status: Acute Category: Medical Code(s): L03.114 - Cellulitis of left upper limb (2) Leukocytosis Current visit: Yes Status: Acute Category: Medical Code(s): D72.829 - Elevated white blood cell count, unspecified (3) Fever and chills Current visit: Yes Status: Acute Category: Medical Code(s): R50.9 - Fever, unspecified (4) Olecranon bursitis of left elbow Current visit: Yes Status: Acute Category: Medical Code(s): M70.22 - Olecranon bursitis, left elbow - Assessment and plan all Dx Assessment and Plan for all problems:: Saw patient, agree with above note, will switch to oral antibiotics today with p ossible discharge later today.
[2018-03-03 12:00] LABS: Basophils # 0.1 K/mm3 (0-0.2); Basophils % 0.5 % (0.1-2.0); Eosinophils # 0.2 K/mm3 (0.0-0.4); Eosinophils % 2.1 % (0.1-12.0); Hematocrit 39.8 % (42.0-52.0); Hemoglobin 13.3 g/dL (14.1-18.0); Lymphocytes # 2.1 K/mm3 (0.7-4.5); Mean Corpuscular HGB Conc 33.5 g/dL (31.8-35.4); Mean Corpuscular Hemoglobin 29.7 pg (27.0-31.2); Mean Corpuscular Volume 88.8 fl (80-94); Mean Platelet Volume 7.8 fl (7.4-10.4); Monocytes # 0.8 K/mm3 (0.1-1.0); Monocytes % 7.3 % (1.7-9.3); Neutrophils # 7.7 K/mm3 (1.8-7.8); Neutrophils % 71.1 % (37.0-80.0); Platelet Count 294 K/mm3 (142-424); Red Blood Count 4.48 M/mm3 (4.60-6.20); Red Cell Distribution Width 12.3 % (11.5-17.5); White Blood Count 10.9 K/mm3 (4.8-10.8)
--- NOTE | 2018-03-03 13:16 | Progress Note ---
Subjective Date: 03/03/18 Time: 12:30 Principal diagnosis: Olecranon bursitis, left elbow; cellulitis, left elbow PN: Obj Ex Vital signs: Temp Pulse Resp BP Pulse Ox 97.9 F 76 18 142/91 95 03/03/18 08:00 03/03/18 08:00 03/03/18 08:00 03/03/18 08:00 03/03/18 08:00 Narrative: Laboratory Results - last 24 hr 03/03/18 11:50: WBC 10.9 H, RBC 4.48 L, Hgb 13.3 L, Hct 39.8 L, MCV 88.8, MCH 29.7, MCHC 33.5, RDW 12.3, Plt Count 294, MPV 7.8, Neut % (Auto) 71.1, Lymph % (Auto) 19.0, [place] % (Auto) 7.3, Eos % (Auto) 2.1, Baso % (Auto) 0.5, Neut # (Auto) 7.7, Lymph # (Auto) 2.1, [place] # (Auto) 0.8, Eos # (Auto) 0.2, Baso # (Auto) 0.1 03/03/18 11:50: C-Reactive Protein 7.1 H D Progress Note: A&P (1) Cellulitis of left elbow Status: Acute Current Visit: Yes (2) Leukocytosis Status: Acute Current Visit: Yes (3) Fever and chills Status: Acute Current Visit: Yes (4) Olecranon bursitis of left elbow Status: Acute Current Visit: Yes
[2018-03-03 17:44] LABS: Erythrocyte Sedimentation Rate 52 mm/hr (0-15)
--- NOTE | 2018-03-03 21:52 | Discharge Summary ---
General - General Admission date:: 02/27/18 Discharge date: 03/03/18 HPI HPI: 48 year old healthy male, local [employer], presented to [facility] ER last night complaining of increasing left elbow pain associated with swelling and skin redness. 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 He reports the ER physician aspirated his left elbow in the ER yesterday. Hospital Course Hospital Course: The patient was placed on IV Vancomycin and Orthopedics was consulted by the ER physician. Ortho saw the patient and felt the infection was cellulitic in nature and no appreciable abscesses or fluctuance was found on exam. They wanted to continue the IV antibiotics and conservative treatment. Zosyn was added to the Vancomycin. The patient's cellulitis improved. His WBC improved and his fever broke. He was able to eat and move about the room. He was stable to be discharged home on oral abx. Objective Vital signs: Temp Pulse Resp BP Pulse Ox 97.9 F 76 18 142/91 95 03/03/18 08:00 03/03/18 08:00 03/03/18 08:00 03/03/18 08:00 03/03/18 08:00 Narrative: - Constitutional no acute distress - *Routine HEENT Exam Head: Present: normocephalic Eye: Present: EOMI, PERRL ENT: Present: mucous membranes moist - *Routine Neck Exam Present: supple. Absent: lymphadenopathy - *Routine Respiratory Exam Present: CTA bilaterally - *Routine Cardiovascular Exam Present: RRR - *Routine Abdominal Exam Present: soft, normoactive bowel sounds. Absent: tenderness - *Routine Extremities Exam Present: edema (around the left elbow). Absent: cyanosis, clubbing - *Routine Skin Exam Present: erythema (around the left elbow, centered over the olecranon, some induration, no fluctuance), warm - *Routine Neurological Exam Present: alert, oriented X3 Results Labs on day of discharge: Labs from last 24 hours 03/03/18 03/03/18 11:50 11:50 WBC 10.9 H RBC 4.48 L Hgb 13.3 L Hct 39.8 L MCV 88.8 MCH 29.7 MCHC 33.5 RDW 12.3 Plt Count 294 MPV 7.8 Neut % (Auto) 71.1 Lymph % (Auto) 19.0 [place] % (Auto) 7.3 Eos % (Auto) 2.1 Baso % (Auto) 0.5 Neut # (Auto) 7.7 Lymph # (Auto) 2.1 [place] # (Auto) 0.8 Eos # (Auto) 0.2 Baso # (Auto) 0.1 ESR 52 H C-Reactive Protein 7.1 H D Preliminary micro results at discharge 02/27/18 18:47 Blood Culture - Preliminary Blood NO GROWTH AFTER 48 HOURS 02/27/18 18:47 Blood Culture - Preliminary Blood NO GROWTH AFTER 48 HOURS DS: Diagnosis - Discharge Diagnosis (1) Cellulitis of left elbow Status: Acute (2) Leukocytosis Status: Acute (3) Fever and chills Status: Acute (4) Olecranon bursitis of left elbow Status: Acute Discharge Plan - Patient Discharge Instructions ACTIVITY: Continue current activity DIET: continue same diet Patient Instructions: DI for Cellulitis -- Adult - Follow up Plan Follow up with: Cristina Douglas MD [Primary Care Provider] - 1 week Disposition: Home, Self-Prison Medications: Home Medications Medication Instructions Recorded Confirmed Type No Known Home Medications 02/27/18 02/27/18 History Prescriptions/Medication Reconciliation: New cefUROXime axetil [Ceftin 500mg Tab (GEQ)] 500 mg PO BID #20 tab Clindamycin HCl 300 mg PO TID #30 capsule No Action No Known Home Medications
== END 2018-03-03 14:31 | disposition home or self-care (01) ==
LOC: 2ND 18:36 → ER 18:36 → OBSVTOIN 21:39 → 2ND 21:40
PROVIDERS: ADMIT Family Medicine; ATTEND Family Medicine

== ENCOUNTER 2020-06-18 13:53 | Emergency (ER) | payer OTHER, SELFPAY ==
[2020-06-18 15:30] VITALS: BP 128/80; PULSE 89; RESP 14; TEMP 36.5; O2SAT 98; BMI 33.5
--- NOTE | 2020-06-18 15:37 | HMH.EDUTC ---
[facility] [place] Disposition Clinical Impression: Exposure to COVID-19 virus Upper respiratory infection Qualifiers: URI type: unspecified URI Qualified Code(s): J06.9 - Acute upper respiratory infection, unspecified Disposition: Home, Self-Care Condition on Discharge: Good Instructions: Preventing the Spread of Coronavirus Discharge Instructions Additional Instructions: Drink plenty of fluids. Take tylenol for pain or fever. Take the medications as directed. Follow up with your regular doctor. GO TO THE ER FOR ANY WORSENING SYMPTOMS Prescriptions: Benzonatate [Tessalon Perle 100mg Cap] 100 mg PO TIDP PRN #30 cap PRN Reason: Cough Transmission Status: Received by [id number] Azithromycin [Z-Brien 250mg Tab*] 250 mg PO UD DOSE PK #6 tab Transmission Status: Received by [id number] Referrals: Cristina Douglas MD [Primary Care Provider] - Time of Disposition: 15:54 Medical Decision Making - Medical Records Medical records reviewed: No: I reviewed the patient's medical records. - [place] Inquiry Pt receiving controlled substance: No Vital Signs: 06/18/20 15:30 06/18/20 15:55 Temperature 97.7 F 97.7 F Temperature Source Oral Pulse Rate 89 Pulse Rate [Right Brachial] 89 Respiratory Rate 14 14 Blood Pressure 128/80 Blood Pressure [Right Arm] 128/80 Blood Pressure Mean [Right Arm] 96 Blood Pressure Source [Right Arm] Automatic Cuff Blood Pressure Position [Right Arm] Sitting 02 Sat by Pulse Oximetry 98 Oxygen Delivery Method Room Air Orders (Tests/Meds): ORDERS Category Date Time Status Covid-19 Nasal PCR ([facility]) Routine Lab 06/18/20 15:20 Received [facility] [place] HPI - General Stated complaint: covid exposure Time Seen by Provider: 06/18/20 15:37 - History of Present Illness Provider Complaint: He states that he has been exposed to covid-19 thru his mother having it. He c/o sinus congestion for the past 2 days. - Related Data Previous Rx's Medication Instructions Recorded cefUROXime axetiL [Ceftin 500mg 500 mg PO BID #20 tab 03/03/18 Tab (GEQ)] clindamycin HCL [Clindamycin HCl 300 mg PO TID #30 cap 03/03/18 300mg Cap] Azithromycin [Z-Brien 250mg Tab*] 250 mg PO UD DOSE PK #6 tab 06/18/20 Benzonatate [Tessalon Perle 100mg 100 mg PO TIDP PRN #30 cap 06/18/20 Cap] Allergies Allergy/AdvReac Type Severity Reaction Status Date / Time naproxen [From Aleve] Allergy Dizziness Verified 03/10/18 08:[address] [facility] History - Hepatitis A Screen Attestation statement:: This patient has been screened for Hepatitis A risk factors. I have reviewed the patient's past medical history: Yes Medical History: Denies:: Diabetes Mellitus Type 1, Diabetes Mellitus Type 2, MRSA Other Surgeries: Yes: No Previous Surgery, Other - Social History Smoking Status: Current every day smoker Tobacco Type: cigarettes # Packs/Day (cigarettes): 1 #Yrs smoked (if former smoker): 10 Alcohol Intake: never Alcohol Intake Frequency:: holidays/special occasions only Occupational Status: employed Housing: house Household Members: spouse Family Hx:: Diabetes ROS Obtained: Yes All systems reviewed & no additional complaints - Constitutional Constitutional: Reports system reviewed and no additional complaints, except as docu - Eyes Eyes: Reports system reviewed and no additional complaints, except as docu - ENT Ears, Nose, Mouth, and Throat: Reports system reviewed and no additional complaints, except as docu - Cardiovascular Cardiovascular: Reports system reviewed and no additional complaints, except as docu - Respiratory Respiratory: Reports system reviewed and no additional complaints, except as docu - Gastrointestinal Gastrointestingal: Reports: system reviewed and no additional complaints, except as docu Physical Exam - General General appearance: alert, in no apparent distress - Head Head exam: atraumatic, normocephalic, normal inspection - Eye Eye e
[2020-06-18 15:55] VITALS: BP 128/80; PULSE 89; RESP 14; TEMP 36.5; O2SAT 98
--- NOTE | 2020-06-19 10:28 | PC.NURSE ---
left voicemail to call back
--- NOTE | 2020-06-19 10:31 | PC.NURSE ---
notified of positive COVId result
== END 2020-06-18 16:00 | disposition home or self-care (01) ==
PROVIDERS: Emergency Provider Nurse Practitioner Family; PCP Family Medicine
DX: U07.1 COVID-19 (principal); F17.210 Nicotine dependence, cigarettes, uncomplicated
CPT/HCPCS: 99202; G0463; U0003